=== PATIENT | female | born 1965 | race Caucasian/White ===

== ENCOUNTER → 2016-07-06 | Outpatient (CLI) | payer MEDICARE ==
[~2016-07-06] MED LIST: /DULO30CA OR; /ROPI5TA OR; AMIT25TA10 PO; AMITIZA PO; ESTR62CR PV; IBUP800T OR; LISI10TA4; LYRI75CA OR; MILKSUS PO; MIRALEX PO; NAPR500T; NICORETTE; PAXI30TA OR; SOMA350T; SOMA350T OR; TIZA2TAB3 PO; TRAM50TA2 OR; VENL75TA2; VICO5TAB PO; [UNRECOGNIZED DRUG - CODE] PO
--- NOTE | 2016-07-06 23:53 | ECWPNPC ---
PATIENT NAME: NICOLAS LLANES : 1965 GENDER: FEMALE VISIT DATE: 07/06/2016 DISCHARGE DATE: 07/06/16 1027 VISIT LOCKED DATE TIME: PHYSICIAN: CHING LONG RESOURCE: CHING LONG REASON FOR APPOINTMENT 1. FIBROMIALGIA HISTORY OF PRESENT ILLNESS HISTORY OF PRESENT ILLNESS: PAIN THE PATIENT DESCRIBES THE PAIN... FALL RISK SCREENING: SCREENING :NO FALLS IN THE PAST YEAR TODAY'S VISIT: NOTES: RATES PAIN LEVEL TODAY 6/10 . NOTES WORST AREA OF PAIN IS JOINTS AND AT THE BASE OF THE NECK AND ACROSS THE SHOULDERS. REPORTS TRAMADOL IS EXTREMELY EFFECTIVE AT KEEPING THE PAIN CONTROLED. NOTED SHE IS FEELING VERY STRESSED AND WHILE IS NOT SUICIDAL WISHES SHE COULD SLEEP FOREVER.. CURRENT MEDICATIONS TAKING CYMBALTA 60 MG CAPSULE DELAYED RELEASE PARTICLES 1 CAPSULE ORALLY ONCE A DAY TAKING TRAMADOL HCL 50 MG TABLET 1-2 TABS ORALLY EVERY 6 HRS PRN TAKING IBUPROFEN 1 TAB ORAL 400 MG Q 6HRS NEEDED NOT-TAKING ZANTAC 150 MAXIMUM STRENGTH 75 MG TABLET 1 TABLET ORALLY TWICE A DAY UNKNOWN CUSTOM DO NOT USE TRAMADOL 50 MG TABLET ONE TAB ORALLY EVERY 4-6 HOURS PRN PAIN UNKNOWN SOMA 350 MG TABLET 1 TABLET NEEDED ORALLY FOUR TIMES A DAY UNKNOWN PAXIL 20 MG TABLET 1 TABLET IN THE MORNING ORALLY ONCE A DAY MEDICATION LIST REVIEWED AND RECONCILED WITH THE PATIENT PAST MEDICAL HISTORY FIBROMYALGIA ARTHRITIS DEPRESSION ACID REFLUX ARNOLD MALFORMATION SHINGLES IN 2016 DIVERTICULOSIS ALLERGIES WELLBUTRIN: MOOD-ANGRY: SIDE EFFECTS CT DYE: SNEEZING-BREATHING: ALLERGY SURGICAL HISTORY APPENDECTOMY 1987 TUBAL LIGATION HYSTERECTOMY CHOLECYSTECTOMY SOCIAL HISTORY GENERAL: TOBACCO USE ARE YOU A:NONSMOKER LEARNING BARRIERS / SPECIAL NEEDS ORIENTED TO PLAN OF CARE: PATIENT, PAIN MANAGEMENT PATIENT, ORIENTED TO PLAN OF CARE: PATIENT, PAIN MANAGEMENT PATIENT. NEW PATIENT PAIN DIARY TODAY'S VISITNOTES FROM 0-10, WHAT LEVEL IS YOUR PAIN TODAY?0 PAIN CLINIC PFS, CLERGY, PUBLIC HEALTH REFERRALS PFS REFERRAL NEEDED?NO CLERGY REFERRAL NEEDED?NO PUBLIC HEALTH REFERRAL NEEDED?NO WAS THE PROVIDER NOTIFIED OF ANY PERTINENT INFO?NO PFS REFERRAL NEEDED?NO CLERGY REFERRAL NEEDED?NO PUBLIC HEALTH REFERRAL NEEDED?NO WAS THE PROVIDER NOTIFIED OF ANY PERTINENT INFO?NO HOSPITALIZATION/MAJOR DIAGNOSTIC PROCEDURE SURGICAL RELATED REVIEW OF SYSTEMS CONSTITUTIONAL: ANY CHANGE IN YOUR MEDICAL CONDITION? YES TREATED FOR DIVERTICULITIS 1 MONTH AGO WITH ANTIBIOTICS. . ANXIETY FAMILY ISSUES . CHILLS NO . FEVER NO . INFECTION: DO YOU HAVE NEW INFECTIONS? NO . DO YOU HAVE HISTORY OF MRSA? NO . MUSCULOSKELETAL: ANY NEW PATTERNS OF PAIN OR NUMBNESS? NO . GASTROENTEROLOGY: ANY NEW CHANGE IN BOWEL CONTROL? NO . ADDOMINAL PAIN NEW DIAGNOSIS OF DIVERTICULOSIS AND HAD EPISODE OF DIVERTICULITIS WHICH REQUIRED ANTIBIOTICS. . GENITOURINARY: ANY NEW CHANGE IN BLADDER CONTROL? NO . IS THERE A CHANCE YOU COULD BE ? NO . HEMATOLOGY/LYMPH: DO YOU TAKE ANY BLOOD THINNERS? (FOR EXAMPLE- COUMADIN, PLAVIX, AGGRENOX, PLATEL, PRADAXA, OR XARELTO) NO . WHEN WAS YOUR LAST DOSE? DATE: TIME: . NEUROLOGY: HAVE YOU FALLEN IN THE PAST 6 MONTHS? NO . ANY NEW EXTREMITY NUMBNESS OR WEAKNESS? NO . CARDIOLOGY: DO YOU HAVE A PACEMAKER OR DEFIBRILLATOR? NO . RESPIRATORY: HAVE YOU BEEN SICK IN THE PAST WEEK? NO . FEVER NO . FLU LIKE SYMPTOMS? NO . COUGH NO . INTEGUMENTARY: DO YOU HAVE ANY RASHES OR OPEN SORES? NO . ALLERGIC/IMMUNO: ARE YOU ALLERGIC TO SHELLFISH OR IV DYE? YES CT DYE . ANY NEW ALLERGIES? NO . PSYCHIATRIC: DO YOU HAVE THOUGHTS OF HURTING YOURSELF OR SOMEONE ELSE? NO . ARE YOU ABUSED, NEGLECTED, OR IN AN UNSAFE ENVIRONMENT? NO . ENDOCRINOLOGY: ARE YOU DIABETIC? NO . OTHER: DO YOU NEED ANY PRESCRIPTIONS? YES CYMBALTA/TRAMADOL . IF YES, PLEASE LIST: ____ . ANY NEW PROBLEMS WITH YOUR MEDICATIONS? NO . WHEN DID YOU LAST EAT? ____ . WHEN DID YOU LAST DRINK? ____ . WHAT DID YOU LAST DRINK? ____ . NAME OF PERSON DRIVING YOU HOME? ____ . DO YOU HAVE ANY OTHER QUESTIONS OR CONCERNS NO . PSYCHOLOGY: ANXIETY WORSENING . DEPRESSION NO SUICIDAL IDEATION, BUT JUST DOESN NOT CARE AND EXPRESSED THAT SHE NEEDS HELP WITH THE CAUSES. . REVIEWED BY: PROVIDER: CHING WALLER . VITAL SIGNS WT 191 LBS, HT 64.5", BMI 32.28 INDEX, BP 178/96 MM HG, REPEAT BP 161/100 MM HG, HR 101 /MIN, RR 18 /MIN, TEMP 97.7 F, OXYGEN SAT % 98, NA INITIALS MP, REVIEWED BY: MLFNURSE NOTIFIED OF HIGH B/P. EXAMINATION GENERAL EXAMINATION: PSYCHAFFECT FLAT, APPREAS SAD, CRIES FREQUENTLY, ALERT , ORIENTED X 3 . LUNGS:CLEAR TO AUSCULTATION BILATERALLY. HEART:HEART RATE REGULAR, RAPID. MUSCULOSKELETAL:TRIGGER POINTS:, ELICITED WITH PALPATION OVER CERVICAL SPINOUS PROCESSES AND ACROSS THE TRAPEZIUS MUSCLES BILATERALLY. RESTRICTION OF ROM IS NOTED. , MUSCLE STRENGTH TESTING 5/5 BILATERAL UPPER AND LOWER EXTREMITIES. 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 SUPPORT OFFRED. WILL FOLLOW UP WITH PCP REGARDING BLOOD PRESSURE. [facility] REASON:INCREASED DEPRESSION/ANXIETY, FAMILY ISSUES PROCEDURE CODES FA211 ESTABILISHED PATIENT [facility] FACILITY CHARGE N9254 PAIN ASSESS POS TOOL F/U PLAN DOC 3016F PT SCRND UNHLTHY [place] USE 1124F ACP DISCUSS-NO DSCNMKR DOCD 1036F TOBACCO NON-USER G8427 DOC MEDS VERIFIED W/PT OR RE G8420 BMI<30 AND >=22 CALC & DOCU 3288F FALL RISK ASSESSMENT DOCD G8950 PREHTN/HTN BP DOC INDCD F/U DOC FOLLOW UP 3 MONTHS ELECTRONICALLY SIGNED BY ADRIAN WAGGONER ON 07/06/2016 AT 01:48 PM EST DISCLAIMER : THIS IS A VISIT SUMMARY EXTRACTED FROM THE [employer] CHART. IT IS NOT A COPY OF THE [employer] PROGRESS NOTE. JEMD
== END ==
LOC: M PAIN 09:20
PROVIDERS: ATTEND Nurse Practitioner Family
DX: Q07.00 Arnold-Chiari syndrome without spina bifida or hydrocephalus (principal); M54.2 Cervicalgia; M79.7 Fibromyalgia; M19.90 Unspecified osteoarthritis, unspecified site; F32.9 Major depressive disorder, single episode, unspecified; K21.9 Gastro-esophageal reflux disease without esophagitis; Z79.891 Long term (current) use of opiate analgesic; Z79.899 Other long term (current) drug therapy; Z88.8 Allergy status to other drugs, medicaments and biological substances; Z91.041 Radiographic dye allergy status

== ENCOUNTER → 2016-11-01 | Outpatient (REF) | payer MEDICARE | LOC: M LAB REF 16:24 | PROVIDERS: ATTEND Physician Assistant | DX: R30.0 Dysuria (principal) ==

== ENCOUNTER → 2016-12-01 | Outpatient (CLI) | payer MEDICARE ==
--- NOTE | 2016-12-01 23:23 | ECWPNPC ---
PATIENT NAME: NICOLAS LLANES : 1965 GENDER: FEMALE VISIT DATE: 12/01/2016 DISCHARGE DATE: 12/01/16 1553 VISIT LOCKED DATE TIME: PHYSICIAN: CHING LONG RESOURCE: CHING LONG HISTORY OF PRESENT ILLNESS HISTORY OF PRESENT ILLNESS: PAIN THE PATIENT DESCRIBES THE PAIN... THE PATIENT DESCRIBES THE PAIN... PAIN THE PATIENT DESCRIBES THE PAIN... THE PATIENT DESCRIBES THE PAIN... FALL RISK SCREENING: SCREENING :NO FALLS IN THE PAST YEAR :NO FALLS IN THE PAST YEAR SCREENING :NO FALLS IN THE PAST YEAR :NO FALLS IN THE PAST YEAR TODAY'S VISIT: NOTES: HAS BEEN HAVING SIGNIFICANT FAMILY STRESS - THIS INCREASES GI DISTRESS AND PAIN. IS ASKING TODAY ABOUT MEDICAL MARIJUANA PROGRAM. REPORTS SHE HASN'T HAD A HEADACHE AND HAS TAKEN NO IBUPROFEN IN OVER A MONTH. RATESPAIN TODAY 10/12. NOTES THAT TRAMADOL IS VERY EFFECTIVE IN MANAGING HER PAIN. . CURRENT MEDICATIONS TAKING IBUPROFEN 1 TAB ORAL 400 MG Q 6HRS NEEDED TAKING TRAMADOL HCL 50 MG TABLET 1-2 TABS ORALLY EVERY 6 HRS PRN TAKING CYMBALTA 60 MG CAPSULE DELAYED RELEASE PARTICLES 1 CAPSULE ORALLY TWICE A DAY NOT-TAKING ZANTAC 150 MAXIMUM STRENGTH 75 MG TABLET 1 TABLET ORALLY TWICE A DAY UNKNOWN CUSTOM DO NOT USE TRAMADOL 50 MG TABLET ONE TAB ORALLY EVERY 4-6 HOURS PRN PAIN UNKNOWN SOMA 350 MG TABLET 1 TABLET NEEDED ORALLY FOUR TIMES A DAY UNKNOWN PAXIL 20 MG TABLET 1 TABLET IN THE MORNING ORALLY ONCE A DAY MEDICATION LIST REVIEWED AND RECONCILED WITH THE PATIENT PAST MEDICAL HISTORY FIBROMYALGIA ARTHRITIS DEPRESSION ACID REFLUX ARNOLD MALFORMATION SHINGLES IN 2016 DIVERTICULOSIS ALLERGIES WELLBUTRIN: MOOD-ANGRY: SIDE EFFECTS CT DYE: SNEEZING-BREATHING: ALLERGY SOCIAL HISTORY GENERAL: TOBACCO USE SMOKING CESSATION INFORMATION GIVEN10/27/2015 EXPRESSES INTEREST IN THE PATCH TO QUIT SMOKING/ 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 RECREATIONAL DRUG USE DENIES. SEXUAL HX HAD SEX IN THE LAST 12 MONTHS (VAGINAL, ORAL, OR ANAL)?: YES, WITH: MEN ONLY, USE PROTECTION?: NO, HAVE YOU EVER HAD AN STD?: NO. OCCUPATION: UNEMPLOYED. MARITAL STATUS: . LEARNING BARRIERS / SPECIAL NEEDS ABILITY TO UNDERSTAND VERBAL INSTRUCTIONS GOOD, ABILITY TO UNDERSTAND WRITTEN INSTRUCTIONS GOOD, KNOWLEDGE OF EDUCATIONAL NEEDS/TREATMENT PLAN GOOD, LEARNING PREFERENCE NO PREFERENCE, ORIENTED TO PLAN OF CARE: PATIENT, TEACHING MATERIALS DEMONSTRATION/VERBAL INSTRUCTION, RESPONSE TO EDUCATION EXPLAINES ACCURATELY/VERBALIZES UNDERSTANDING. REVIEW OF SYSTEMS FOLLOW-UP ROS: PSYCHOLOGY: POSITIVE FOR SIGNIFICANT STRESS - IS SEPERATED FROM . . REVIEWED BY: PROVIDER: CHING WALLER . CONSTITUTIONAL: ANY CHANGE IN YOUR MEDICAL CONDITION? NO, NO . CHILLS NO, NO . FEVER NO, NO . INFECTION: DO YOU HAVE NEW INFECTIONS? NO, NO . DO YOU HAVE HISTORY OF MRSA? NO, NO . MUSCULOSKELETAL: ANY NEW PATTERNS OF PAIN OR NUMBNESS? NO, NO . GASTROENTEROLOGY: GENERAL INTERMITTANT BUT PERSISTANT BOWEL PAIN AND DIARRHEA. INTERMITTANT SHARP RECTAL PAIN . ANY NEW CHANGE IN BOWEL CONTROL? NO, . GENITOURINARY: ANY NEW CHANGE IN BLADDER CONTROL? NO, NO . IS THERE A CHANCE YOU COULD BE ? NO, NO . HEMATOLOGY/LYMPH: DO YOU TAKE ANY BLOOD THINNERS? (FOR EXAMPLE- COUMADIN, PLAVIX, AGGRENOX, PLATEL, PRADAXA, OR XARELTO) NO, NO . WHEN WAS YOUR LAST DOSE? DATE: TIME: , DATE: TIME: . NEUROLOGY: HAVE YOU FALLEN IN THE PAST 6 MONTHS? NO, NO . ANY NEW EXTREMITY NUMBNESS OR WEAKNESS? NO, NO . CARDIOLOGY: DO YOU HAVE A PACEMAKER OR DEFIBRILLATOR? NO, NO . CHEST PAIN PATIENT DENIES . RESPIRATORY: HAVE YOU BEEN SICK IN THE PAST WEEK? NO, NO . FEVER NO, NO . FLU LIKE SYMPTOMS? NO, NO . COUGH NO, NO . INTEGUMENTARY: DO YOU HAVE ANY RASHES OR OPEN SORES? NO, NO . ALLERGIC/IMMUNO: ARE YOU ALLERGIC TO SHELLFISH OR IV DYE? NO, NO . ANY NEW ALLERGIES? NO, NO . PSYCHIATRIC: DO YOU HAVE THOUGHTS OF HURTING YOURSELF OR SOMEONE ELSE? NO, NO . ARE YOU ABUSED, NEGLECTED, OR IN AN UNSAFE ENVIRONMENT? NO, NO . ENDOCRINOLOGY: ARE YOU DIABETIC? NO, NO . OTHER: DO YOU NEED ANY PRESCRIPTIONS? NO, NO . IF YES, PLEASE LIST: ____, ____ . ANY NEW PROBLEMS WITH YOUR MEDICATIONS? NO, NO . WHEN DID YOU LAST EAT? ____, ____ . WHEN DID YOU LAST DRINK? ____, ____ . WHAT DID YOU LAST DRINK? ____, ____ . NAME OF PERSON DRIVING YOU HOME? ____, ____ . DO YOU HAVE ANY OTHER QUESTIONS OR CONCERNS NO, NO . VITAL SIGNS WT 423.28 LBS, HT 64.5", BMI 71.53 INDEX, BP 92:148, 148/92 MM HG, HR 88 /MIN, RR 16 /MIN, TEMP 98.6 F, OXYGEN SAT % 95, REVIEWED BY: KG. EXAMINATION GENERAL EXAMINATION: PSYCHALERT , ORIENTED X 3 , APPROPRIATE MOOD AND AFFECT , SMILING AND TALKATIVE. LUNGS:CLEAR TO AUSCULTATION BILATERALLY. HEART:HEART RATE REGULAR, NORMAL S1S2, NO MURMURS, CLICK OR RUBS. ABDOMEN:SOFT, NON-TENDER/NON-DISTENDED, BOWEL SOUNDS PRESENT. MUSCULOSKELETAL:TRIGGER POINTS:, ELICITED WITH PALPATION OVER CERVICAL SPINOUS PROCESSES AND ACROSS THE TRAPEZIUS MUSCLES BILATERALLY. MUSCLE STRENGTH TESTING 5/5 BILATERAL UPPER AND LOWER EXTREMITIES. EXTREMITIES:NO EDEMA. 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 CONTINUE TRAMADOLCONTINUE WITH SLOW WEIGHT LOSS. CONTINUE HEALTHY DIETCOUNSELING NEEDED. PROCEDURE CODES FA211 ESTABILISHED PATIENT [facility] FACILITY CHARGE G8730 PAIN ASSESS POS TOOL F/U PLAN DOC G8427 DOC MEDS VERIFIED W/PT OR RE DISPOSITION & COMMUNICATION FOLLOW UP 2-3 MONTHS (REASON: NECK PAIN/HEADACHE) ELECTRONICALLY SIGNED BY ADRIAN WAGGONER ON 12/01/2016 AT 05:26 PM EDT DISCLAIMER : THIS IS A VISIT SUMMARY EXTRACTED FROM THE [employer] CHART. IT IS NOT A COPY OF THE [employer] PROGRESS NOTE. ELLE
== END ==
LOC: M PAIN 14:40
PROVIDERS: ATTEND Nurse Practitioner Family
DX: Q07.00 Arnold-Chiari syndrome without spina bifida or hydrocephalus (principal); M50.20 Other cervical disc displacement, unspecified cervical region; Z79.891 Long term (current) use of opiate analgesic; Z79.899 Other long term (current) drug therapy; Z88.8 Allergy status to other drugs, medicaments and biological substances; Z91.041 Radiographic dye allergy status

== ENCOUNTER → 2017-02-27 | Outpatient (CLI) | payer MEDICARE ==
--- NOTE | 2017-03-01 00:10 | ECWPNPC ---
PATIENT NAME: NICOLAS LLANES : 1965 GENDER: FEMALE VISIT DATE: 02/27/2017 DISCHARGE DATE: 02/27/17 1127 VISIT LOCKED DATE TIME: PHYSICIAN: CHING LONG RESOURCE: CHING LONG REASON FOR APPOINTMENT 1. BACK HISTORY OF PRESENT ILLNESS HISTORY OF PRESENT ILLNESS: PAIN THE PATIENT DESCRIBES THE PAIN... FALL RISK SCREENING: SCREENING :NO FALLS IN THE PAST YEAR TODAY'S VISIT: NOTES: RATES PAIN TODAY 7-8/10. NOTES PAIN AND SWELLING OVER CENTER ABDOMEN AND LOWER GI TRACT AND IS HAVING A CHECK OF THIS AT [place] SURGEON. NOTES SWELLING IN FEET AND RECTUM. IS NOTING RED BLOTCHES ON THE SKIN. NOTES MUSCLE TIGHTNESS AND STIFFNESS BUT REPORTS OCCIPITAL HAVE NOT BEEN "TOO BAD". HAS BEEN DEALING WITH SIG FAMILY STRESS. CURRENT MEDICATIONS TAKING IBUPROFEN 1 TAB ORAL 400 MG Q 6HRS NEEDED TAKING TRAMADOL HCL 50 MG TABLET 1-2 TABS ORALLY EVERY 6 HRS PRN TAKING CYMBALTA 60 MG CAPSULE DELAYED RELEASE PARTICLES 1 CAPSULE ORALLY TWICE A DAY NOT-TAKING ZANTAC 150 MAXIMUM STRENGTH 75 MG TABLET 1 TABLET ORALLY TWICE A DAY UNKNOWN CUSTOM DO NOT USE TRAMADOL 50 MG TABLET ONE TAB ORALLY EVERY 4-6 HOURS PRN PAIN UNKNOWN SOMA 350 MG TABLET 1 TABLET NEEDED ORALLY FOUR TIMES A DAY UNKNOWN PAXIL 20 MG TABLET 1 TABLET IN THE MORNING ORALLY ONCE A DAY MEDICATION LIST REVIEWED AND RECONCILED WITH THE PATIENT PAST MEDICAL HISTORY FIBROMYALGIA ARTHRITIS DEPRESSION ACID REFLUX ARNOLD MALFORMATION SHINGLES IN 2016 DIVERTICULOSIS ALLERGIES WELLBUTRIN: MOOD-ANGRY: SIDE EFFECTS CT DYE: SNEEZING-BREATHING: ALLERGY REVIEW OF SYSTEMS REVIEWED BY: PROVIDER: CHING LONG SPECIAL NEEDS BABYSITTER . CONSTITUTIONAL: ANY CHANGE IN YOUR MEDICAL CONDITION? YES PT REPORTS SHE HAS A LARGE HERNIA IN ABDOMEN, TO SEE A SURGEON TOMORROW IN [place]. PT ALSO REPORTS INCREASED SWELLING IN FEET AND ANKLES. . CHILLS NO . FEVER NO . INFECTION: DO YOU HAVE NEW INFECTIONS? NO . DO YOU HAVE HISTORY OF MRSA? NO . MUSCULOSKELETAL: ANY NEW PATTERNS OF PAIN OR NUMBNESS? YES PT REPORTS INCREASED PAIN, GOING ON FOR TWO WEEKS. . GASTROENTEROLOGY: ANY NEW CHANGE IN BOWEL CONTROL? PT FEELS SHE IS "SWOLLEN" IN HER ABDOMEN, FEELS THIS IS DUE TO HER HERNIA. NO REPORTED DIARRHER OR CONSTIPATION, MOVES BOWELS DAILY. . GENITOURINARY: ANY NEW CHANGE IN BLADDER CONTROL? NO . IS THERE A CHANCE YOU COULD BE ? NO . HEMATOLOGY/LYMPH: DO YOU TAKE ANY BLOOD THINNERS? (FOR EXAMPLE- COUMADIN, PLAVIX, AGGRENOX, PLATEL, PRADAXA, OR XARELTO) NO . WHEN WAS YOUR LAST DOSE? DATE: TIME: . NEUROLOGY: HAVE YOU FALLEN IN THE PAST 6 MONTHS? YES PT REPORTS HER BALANCE IS OFF, AND SHE STUMBLES. NO ED OR MD VISITS, NO XRAYS. . ANY NEW EXTREMITY NUMBNESS OR WEAKNESS? NO . CARDIOLOGY: DO YOU HAVE A PACEMAKER OR DEFIBRILLATOR? NO . RESPIRATORY: HAVE YOU BEEN SICK IN THE PAST WEEK? NO . FEVER NO . FLU LIKE SYMPTOMS? NO . COUGH NO . INTEGUMENTARY: DO YOU HAVE ANY RASHES OR OPEN SORES? NO . ALLERGIC/IMMUNO: ARE YOU ALLERGIC TO SHELLFISH OR IV DYE? YES . ANY NEW ALLERGIES? NO . PSYCHIATRIC: DO YOU HAVE THOUGHTS OF HURTING YOURSELF OR SOMEONE ELSE? NO . ARE YOU ABUSED, NEGLECTED, OR IN AN UNSAFE ENVIRONMENT? NO . ENDOCRINOLOGY: ARE YOU DIABETIC? NO . OTHER: DO YOU NEED ANY PRESCRIPTIONS? YES, BUT UNSURE WHICH . IF YES, PLEASE LIST: ____ . ANY NEW PROBLEMS WITH YOUR MEDICATIONS? NO . WHEN DID YOU LAST EAT? ____ . WHEN DID YOU LAST DRINK? ____ . WHAT DID YOU LAST DRINK? ____ . NAME OF PERSON DRIVING YOU HOME? ____ . DO YOU HAVE ANY OTHER QUESTIONS OR CONCERNS NO . PSYCHOLOGY: HIGH STRESS LEVEL ASSOCIATED WITH:, IN THE FAMILY . DOES USE "WILD " MARIJUANA AND WISHES TO MAKE CHANGE TO MEDICALLY CONTROLLED MARIJUANA. . VITAL SIGNS WT 186 LBS, HT 64.5", BMI 31.43 INDEX, BP 143/72 MM HG, HR 84 /MIN, RR 18 /MIN, TEMP 97.5 F, OXYGEN SAT % 96%, SAFE IN ENV? (Y/N) YES, NA INITIALS SC 10:38, REVIEWED BY: YENY. EXAMINATION GENERAL EXAMINATION: PSYCHALERT , ORIENTED X 3 , QUIET TODAY, GOOD EYE CONTACT. LUNGS:CLEAR TO AUSCULTATION BILATERALLY. HEART:HEART RATE REGULAR, NORMAL S1S2, NO MURMURS, CLICK OR RUBS. ABDOMEN:SOFT, -TENDER AND FIRM CIRCUMFERENTIALLY AROUND THE UMBILICUS /NON-DISTENDED, BOWEL SOUNDS PRESENT. MUSCULOSKELETAL:TRIGGER POINTS:, ELICITED WITH PALPATION OVER CERVICAL SPINOUS PROCESSES AND ACROSS THE TRAPEZIUS MUSCLES BILATERALLY. MUSCLE STRENGTH TESTING 5/5 BILATERAL UPPER AND LOWER EXTREMITIES. EXTREMITIES:TRACE EDEMA BILATERAL LOWER EXTREMITIES. 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 CLINICAL NOTES: [employer] REGISTRY REVIEWED AND DEMNOSTRATES COMPLLIANCE. REF # [id number]. PROCEDURE CODES FA211 ESTABILISHED PATIENT [facility] FACILITY CHARGE G8730 PAIN ASSESS POS TOOL F/U PLAN DOC G8427 DOC MEDS VERIFIED W/PT OR RE DISPOSITION & COMMUNICATION FOLLOW UP 2 MONTHS (REASON: GENERALIZED PAIN) ELECTRONICALLY SIGNED BY ADRIAN WAGGONER ON 02/28/2017 AT 08:22 AM EDT DISCLAIMER : THIS IS A VISIT SUMMARY EXTRACTED FROM THE [employer] CHART. IT IS NOT A COPY OF THE [employer] PROGRESS NOTE. ELLE
== END ==
LOC: M PAIN 10:30
PROVIDERS: ATTEND Nurse Practitioner Family
DX: Q07.00 Arnold-Chiari syndrome without spina bifida or hydrocephalus (principal); M50.20 Other cervical disc displacement, unspecified cervical region; Z79.891 Long term (current) use of opiate analgesic; Z79.899 Other long term (current) drug therapy; Z88.8 Allergy status to other drugs, medicaments and biological substances; Z91.041 Radiographic dye allergy status

== ENCOUNTER → 2017-05-02 | Outpatient (CLI) | payer MEDICARE ==
--- NOTE | 2017-05-22 00:08 | ECWPNPC ---
PATIENT NAME: NICOLAS LLANES : 1965 GENDER: FEMALE VISIT DATE: 05/02/2017 DISCHARGE DATE: 05/02/17 1537 VISIT LOCKED DATE TIME: PHYSICIAN: CHING LONG RESOURCE: CHING LONG REASON FOR APPOINTMENT 1. GENERALIZED PAIN HISTORY OF PRESENT ILLNESS HISTORY OF PRESENT ILLNESS: PAIN THE PATIENT DESCRIBES THE PAIN... FALL RISK SCREENING: SCREENING :NO FALLS IN THE PAST YEAR TODAY'S VISIT: NOTES: RATES PAIN TODAY 6/10.HAS STARTED MEDICAL MARIJUANA AND NOTES THIS IS HELPFUL WITH SLEEP AND ANXIETY. IS ALSO HELPING THE OVERALL PAIN AND RACING THOUGHTS.. CURRENT MEDICATIONS TAKING IBUPROFEN 1 TAB ORAL 400 MG Q 6HRS NEEDED TAKING TRAMADOL HCL 50 MG TABLET 1-2 TABS ORALLY EVERY 6 HRS PRN TAKING CYMBALTA 60 MG CAPSULE DELAYED RELEASE PARTICLES 1 CAPSULE ORALLY TWICE A DAY UNKNOWN ZANTAC 150 MAXIMUM STRENGTH 75 MG TABLET 1 TABLET ORALLY TWICE A DAY UNKNOWN CUSTOM DO NOT USE TRAMADOL 50 MG TABLET ONE TAB ORALLY EVERY 4-6 HOURS PRN PAIN UNKNOWN SOMA 350 MG TABLET 1 TABLET NEEDED ORALLY FOUR TIMES A DAY UNKNOWN PAXIL 20 MG TABLET 1 TABLET IN THE MORNING ORALLY ONCE A DAY MEDICATION LIST REVIEWED AND RECONCILED WITH THE PATIENT PAST MEDICAL HISTORY FIBROMYALGIA ARTHRITIS DEPRESSION ACID REFLUX ARNOLD MALFORMATION SHINGLES IN 2016 DIVERTICULOSIS ALLERGIES WELLBUTRIN: MOOD-ANGRY: SIDE EFFECTS CT DYE: SNEEZING-BREATHING: ALLERGY SOCIAL HISTORY GENERAL: TOBACCO USE SMOKING CESSATION INFORMATION GIVEN05/02/2017 EXPRESSES INTEREST IN THE PATCH TO QUIT SMOKING/ 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 RECREATIONAL DRUG USE DENIES. SEXUAL HX HAD SEX IN THE LAST 12 MONTHS (VAGINAL, ORAL, OR ANAL)?: YES, WITH: MEN ONLY, USE PROTECTION?: NO, HAVE YOU EVER HAD AN STD?: NO. OCCUPATION: UNEMPLOYED. MARITAL STATUS: . LEARNING BARRIERS / SPECIAL NEEDS ABILITY TO UNDERSTAND VERBAL INSTRUCTIONS GOOD, ABILITY TO UNDERSTAND WRITTEN INSTRUCTIONS GOOD, KNOWLEDGE OF EDUCATIONAL NEEDS/TREATMENT PLAN GOOD, LEARNING PREFERENCE NO PREFERENCE, ORIENTED TO PLAN OF CARE: PATIENT, TEACHING MATERIALS DEMONSTRATION/VERBAL INSTRUCTION, RESPONSE TO EDUCATION EXPLAINES ACCURATELY/VERBALIZES UNDERSTANDING. REVIEW OF SYSTEMS FOLLOW-UP ROS: PSYCHOLOGY: HAS JUST STARTED COUNSELING . REVIEWED BY: PROVIDER: . CONSTITUTIONAL: ANY CHANGE IN YOUR MEDICAL CONDITION? NO . CHILLS NO . FEVER NO . INFECTION: DO YOU HAVE NEW INFECTIONS? NO . DO YOU HAVE HISTORY OF MRSA? NO . MUSCULOSKELETAL: ANY NEW PATTERNS OF PAIN OR NUMBNESS? NO . GASTROENTEROLOGY: GENERAL IS HAVING VENTRAL HERNIA REPAIR TOMORROW . ANY NEW CHANGE IN BOWEL CONTROL? NO . GENITOURINARY: ANY NEW CHANGE IN BLADDER CONTROL? NO . IS THERE A CHANCE YOU COULD BE ? NO . HEMATOLOGY/LYMPH: DO YOU TAKE ANY BLOOD THINNERS? (FOR EXAMPLE- COUMADIN, PLAVIX, AGGRENOX, PLATEL, PRADAXA, OR XARELTO) NO . WHEN WAS YOUR LAST DOSE? DATE: TIME: . NEUROLOGY: HAVE YOU FALLEN IN THE PAST 6 MONTHS? YES 2 WEEKS AGO HAD A FALL LEGS WEAK, USUALLY THE LEFT ONE . ANY NEW EXTREMITY NUMBNESS OR WEAKNESS? NO . CARDIOLOGY: DO YOU HAVE A PACEMAKER OR DEFIBRILLATOR? NO . RESPIRATORY: HAVE YOU BEEN SICK IN THE PAST WEEK? NO . FEVER NO . FLU LIKE SYMPTOMS? NO . COUGH NO . INTEGUMENTARY: DO YOU HAVE ANY RASHES OR OPEN SORES? NO . ALLERGIC/IMMUNO: ARE YOU ALLERGIC TO SHELLFISH OR IV DYE? NO . ANY NEW ALLERGIES? NO . PSYCHIATRIC: DO YOU HAVE THOUGHTS OF HURTING YOURSELF OR SOMEONE ELSE? NO . ARE YOU ABUSED, NEGLECTED, OR IN AN UNSAFE ENVIRONMENT? NO . ENDOCRINOLOGY: ARE YOU DIABETIC? NO . OTHER: DO YOU NEED ANY PRESCRIPTIONS? YES TRAMADOL, CYMBALTA, ZANTAC . IF YES, PLEASE LIST: ____ . ANY NEW PROBLEMS WITH YOUR MEDICATIONS? NO . WHEN DID YOU LAST EAT? ____ . WHEN DID YOU LAST DRINK? ____ . WHAT DID YOU LAST DRINK? ____ . NAME OF PERSON DRIVING YOU HOME? ____ . DO YOU HAVE ANY OTHER QUESTIONS OR CONCERNS NO . VITAL SIGNS WT 190 LBS, HT 64.5", BMI 32.11 INDEX, BP 170/95 MM HG, HR 89 /MIN, RR 18 /MIN, TEMP 98.1 F, OXYGEN SAT % 96%, SAFE IN ENV? (Y/N) YES, NA INITIALS SC 14:29, REVIEWED BY: KG. EXAMINATION GENERAL EXAMINATION: PSYCHALERT , ORIENTED X 3 , QUIET TODAY, GOOD EYE CONTACT. LUNGS:CLEAR TO AUSCULTATION BILATERALLY. HEART:HEART RATE REGULAR, NORMAL S1S2, NO MURMURS, CLICK OR RUBS. ABDOMEN:SOFT, -TENDER AND FIRM CIRCUMFERENTIALLY AROUND THE UMBILICUS /NON-DISTENDED, BOWEL SOUNDS PRESENT. MUSCULOSKELETAL:TRIGGER POINTS:, ELICITED WITH PALPATION OVER CERVICAL SPINOUS PROCESSES AND ACROSS THE TRAPEZIUS MUSCLES BILATERALLY. MUSCLE STRENGTH TESTING 5/5 BILATERAL UPPER AND LOWER EXTREMITIES. EXTREMITIES:TRACE EDEMA BILATERAL LOWER EXTREMITIES. 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 REFILL TRAMADOL HCL TABLET, 50 MG, 1-2 TABS, ORALLY, EVERY 6 HRS PRN, 30 DAY(S), 180, REFILLS 5 REFILL CYMBALTA CAPSULE DELAYED RELEASE PARTICLES, 60 MG, 1 CAPSULE, ORALLY, TWICE A DAY, 30 DAY(S), 60, REFILLS 5 START RANITIDINE HCL CAPSULE, 150 MG, 1 CAPSULE AT BEDTIME, ORALLY, BID, 30 DAY(S), 60 CAPSULE, REFILLS 5 PROCEDURE CODES FA211 ESTABILISHED PATIENT [facility] FACILITY CHARGE [id number] PAIN ASSESS POS TOOL F/U PLAN DOC G8427 DOC MEDS VERIFIED W/PT OR RE DISPOSITION & COMMUNICATION FOLLOW UP 3 MONTHS (REASON: NECK PAIN) ELECTRONICALLY SIGNED BY ADRIAN WAGGONER ON 05/21/2017 AT 03:14 PM EST DISCLAIMER : THIS IS A VISIT SUMMARY EXTRACTED FROM THE [employer] CHART. IT IS NOT A COPY OF THE [employer] PROGRESS NOTE. [place]
== END ==
LOC: M PAIN 14:30
PROVIDERS: ATTEND Nurse Practitioner Family
DX: Q07.00 Arnold-Chiari syndrome without spina bifida or hydrocephalus (principal); M50.20 Other cervical disc displacement, unspecified cervical region; F32.9 Major depressive disorder, single episode, unspecified; Z88.8 Allergy status to other drugs, medicaments and biological substances; Z91.041 Radiographic dye allergy status; Z79.891 Long term (current) use of opiate analgesic; Z79.899 Other long term (current) drug therapy

== ENCOUNTER 2017-07-03 23:45 | Inpatient (IN) | payer MEDICARE ==
[2017-07-04 01:34] LABS: HEMATOCRIT 43.9 % (36.0-47.0); HEMOGLOBIN 15.1 g/dl (12.0-16.0); MEAN CORPUSCULAR HEMOGLOBIN 32.4 pg (27.0-33.0); MEAN CORPUSCULAR HGB CONC 34.4 g/dl (32.0-36.5); MEAN CORPUSCULAR VOLUME 94.2 fl (80.0-96.0); PLATELET COUNT, AUTOMATED 224 10^3/uL (150-450); RED BLOOD COUNT 4.66 10^6/uL (4.00-5.40); RED CELL DISTRIBUTION WIDTH 13.2 % (11.5-14.5); WHITE BLOOD COUNT 12.1 10^3/uL (4.0-10.0)
[2017-07-04 01:46] LABS: AMPHETAMINES LEVEL URINE NEGATIVE (NEGATIVE); BARBITURATES URINE NEGATIVE (NEGATIVE); BENZODIAZEPINES URINE NEGATIVE (NEGATIVE); CANNABINOIDS URINE POSITIVE (NEGATIVE); COCAINE METABOLITE URINE NEGATIVE (NEGATIVE); METHADONE URINE NEGATIVE (NEGATIVE); OPIATES URINE NEGATIVE (NEGATIVE); PHENCYCLIDINE URINE NEGATIVE (NEGATIVE)
[2017-07-04 02:03] LABS: ALBUMIN 4.2 GM/DL (3.2-5.2); ALBUMIN/GLOBULIN RATIO 1.24 (1.00-1.93); ALKALINE PHOSPHATASE 76 U/L (45-117); ALT/SGPT 28 U/L (12-78); ANION GAP 9 MEQ/L (8-16); AST/SGOT 19 U/L (7-37); BILIRUBIN,DIRECT < 0.1 MG/DL (0.0-0.2); BILIRUBIN,TOTAL 0.2 MG/DL (0.2-1.0); BLOOD UREA NITROGEN 8 MG/DL (7-18); CALCIUM LEVEL 9.1 MG/DL (8.5-10.1); CARBON DIOXIDE LEVEL 29 MEQ/L (21-32); CHLORIDE LEVEL 106 MEQ/L (98-107); CREATININE FOR GFR 0.88 MG/DL (0.55-1.30); GLOMERULAR FILTRATION RATE > 60.0 (>58); GLUCOSE, FASTING 107 MG/DL (70-100); POTASSIUM SERUM 4.2 MEQ/L (3.5-5.1); SALICYLATE LEVEL 6.9 MG/DL (5.0-30.0); SODIUM LEVEL 144 MEQ/L (136-145); TOTAL PROTEIN 7.6 GM/DL (6.4-8.2)
[2017-07-04 02:12] LABS: ETHYL ALCOHOL (ETHANOL) < 0.003 % (0.000-0.010)
[2017-07-04 02:13] LABS: ACETAMINOPHEN LEVEL < 2.0 UG/ML (10.0-30.0)
[2017-07-04] MEDS: LORazepam 1 MG TAB PO (02:25)
[2017-07-04 02:28] LABS: FREE THYROXINE INDEX 3.3 % (1.3-4.8); T UPTAKE 31 % (30-39); THYROXINE (T4) 10.6 UG/DL (4.5-12.0)
[2017-07-04] MEDS ORDERED: MOM 30ML SUSPENSION UDC PO (02:45)
[2017-07-04] MEDS ORDERED: traZODone 50 MG TAB PO (02:45)
[2017-07-04] MEDS ORDERED: MAALOX 30 ML SUSP *UDC PO (02:45)
[2017-07-04] MEDS: NICOTINE 21MG/24HR 1 EA TRANSDERMAL TD (10:22)
[2017-07-04] MEDS: traMADol 50 MG TAB PO (13:36)
[2017-07-04] MEDS: DULoxetine 30 MG CAP (CYMBALTA) PO ×2 (13:37→20:33)
[2017-07-04] MEDS: ACETAMINOPHEN TAB 650MG DOSE (2X325MG) PO (19:49)
[2017-07-04] MEDS: traZODone 50 MG TAB PO (21:00)
[2017-07-05] MEDS: ACETAMINOPHEN TAB 650MG DOSE (2X325MG) PO (03:57)
[2017-07-05] MEDS: traMADol 50 MG TAB PO ×4 (03:58→21:08)
[2017-07-05] MEDS: DULoxetine 30 MG CAP (CYMBALTA) PO ×2 (08:03→20:09)
[2017-07-05] MEDS: NICOTINE 21MG/24HR 1 EA TRANSDERMAL TD (08:04)
[2017-07-05 10:20] LABS: CONTROL LINE HCG INT CTR LINE PRESENT; HCG, SERUM QUALITATIVE NEGATIVE (NEGATIVE)
[2017-07-05] MEDS: FAMOTIDINE 20 MG TAB PO ×2 (10:57→20:09)
[2017-07-05] MEDS: PROPRANOLOL 10 MG TAB PO (12:40)
[2017-07-05] MEDS: traZODone 50 MG TAB PO (21:08)
[2017-07-06] MEDS ORDERED: PROPRANOLOL 10 MG TAB PO
[2017-07-06] MEDS: ACETAMINOPHEN TAB 650MG DOSE (2X325MG) PO (04:48)
[2017-07-06 07:41] LABS: HEMATOCRIT 44.3 % (36.0-47.0); HEMOGLOBIN 15.5 g/dl (12.0-16.0); MEAN CORPUSCULAR HEMOGLOBIN 32.5 pg (27.0-33.0); MEAN CORPUSCULAR VOLUME 92.9 fl (80.0-96.0); PLATELET COUNT, AUTOMATED 236 10^3/uL (150-450); RED BLOOD COUNT 4.77 10^6/uL (4.00-5.40); RED CELL DISTRIBUTION WIDTH 12.7 % (11.5-14.5); WHITE BLOOD COUNT 10.7 10^3/uL (4.0-10.0)
[2017-07-06 08:22] LABS: T UPTAKE 30 % (30-39); THYROXINE (T4) 10.1 UG/DL (4.5-12.0)
[2017-07-06] MEDS: traMADol 50 MG TAB PO ×2 (08:24→21:02)
[2017-07-06] MEDS: DULoxetine 30 MG CAP (CYMBALTA) PO ×2 (08:24→20:58)
[2017-07-06] MEDS: FAMOTIDINE 20 MG TAB PO ×2 (08:24→21:00)
[2017-07-06] MEDS: NICOTINE 21MG/24HR 1 EA TRANSDERMAL TD (08:25)
[2017-07-06] MEDS: PROPRANOLOL 10 MG TAB PO ×3 (08:25→21:00)
[2017-07-06] MEDS: clonazePAM 0.5 MG TAB PO (21:00)
[2017-07-06] MEDS: traZODone 50 MG TAB PO (21:00)
[2017-07-07] MEDS: DULoxetine 30 MG CAP (CYMBALTA) PO (08:33)
[2017-07-07] MEDS: FAMOTIDINE 20 MG TAB PO (08:33)
[2017-07-07] MEDS: PROPRANOLOL 10 MG TAB PO (08:34)
[2017-07-07] MEDS: traMADol 50 MG TAB PO (08:34)
[2017-07-07] MEDS: NICOTINE 21MG/24HR 1 EA TRANSDERMAL TD (08:34)
== END 2017-07-07 10:45 | disposition home or self-care (01) | DRG 896 ==
LOC: M ED 23:45 → M ED INP 07-04 02:44 → M PSY 07-04 03:46
DX: F19.959 Other psychoactive substance use, unspecified with psychoactive substance-induced psychotic disorder, unspecified (principal); G93.5 Compression of brain; F41.1 Generalized anxiety disorder; F12.20 Cannabis dependence, uncomplicated; K21.9 Gastro-esophageal reflux disease without esophagitis; R03.0 Elevated blood-pressure reading, without diagnosis of hypertension; F17.210 Nicotine dependence, cigarettes, uncomplicated; R94.6 Abnormal results of thyroid function studies; R94.31 Abnormal electrocardiogram [ECG] [EKG]; F39 Unspecified mood [affective] disorder; M54.2 Cervicalgia; Z79.899 Other long term (current) drug therapy; Z88.8 Allergy status to other drugs, medicaments and biological substances; Z91.041 Radiographic dye allergy status; Z90.710 Acquired absence of both cervix and uterus; Z90.49 Acquired absence of other specified parts of digestive tract

== ENCOUNTER → 2017-08-23 | Outpatient (CLI) | payer MEDICARE | LOC: M PAIN 14:00 | DX: Q07.00 Arnold-Chiari syndrome without spina bifida or hydrocephalus (principal); M50.20 Other cervical disc displacement, unspecified cervical region; M79.7 Fibromyalgia; F32.9 Major depressive disorder, single episode, unspecified; Z79.899 Other long term (current) drug therapy; Z88.8 Allergy status to other drugs, medicaments and biological substances; Z91.041 Radiographic dye allergy status; Z72.0 Tobacco use | CPT/HCPCS: G0463 ==

== ENCOUNTER → 2018-09-11 | Outpatient (CLI) | payer MEDICARE ==
[~2018-09-11] MED LIST changes: -/DULO30CA OR; -/ROPI5TA OR; +ARIP1TAB6 PO; +CYMB1CAP5 OR; +DULO1CAP3 PO; +MILK120011 PO; -MILKSUS PO; +PATIENT COMMENT; +PROP10TA55 PO; +RANI150T PO; +REQU1TAB15 OR; +TRAM50TA2 PO; +TRAZO50TA PO; +marijuana
--- NOTE | 2018-09-13 01:45 | ECWPNPC ---
PATIENT NAME: NICLOAS LLANES : 1965 GENDER: FEMALE VISIT DATE: 09/11/2018 DISCHARGE DATE: 09/11/18 1417 VISIT LOCKED DATE TIME: PHYSICIAN: GABRIEL ZULUAGA RESOURCE: GABRIEL ZULUAGA REASON FOR APPOINTMENT 1. PT OF SW NECK/BACK HISTORY OF PRESENT ILLNESS HISTORY OF PRESENT ILLNESS: PAIN THE PATIENT DESCRIBES THE PAIN... 52 YR OLD FEMALE HERE FOR F/U ON NECK, UPER AND LOWER BACK PAIN.PT SAYS HER BACK IS MORE PAINFUL FEELS HER RIGHT SIDE OF LOWER BACK FEELS NUMB.LAST MRI 2008.SHE SAYS SHE HET OCCASIONAL PAIN DOWN THE RIGHT LEG. SHE SAYS THE PAIN VAIRES FROM 6/10 BUT CAN GO UP TO AN 8/10.SHE FEELS HER PAIN HAS INCREASED RECENTLY.SHE IS DUE TO HAVE SURGERY FOR HIATAL HERNIA. PATIENT'S LAST MRI 2008. FALL RISK SCREENING: SCREENING :NO FALLS REPORTED IN THE LAST YEAR CURRENT MEDICATIONS TAKING IBUPROFEN 1 TAB ORAL 400 MG Q 6HRS NEEDED TAKING RANITIDINE HCL 150 MG CAPSULE 1 CAPSULE ORALLY BID TAKING TRAMADOL HCL 50 MG TABLET 1-2 TABS ORALLY EVERY 6 HRS PRN TAKING CYMBALTA 60 MG CAPSULE DELAYED RELEASE PARTICLES 1 CAPSULE ORALLY TWICE A DAY TAKING MAY USE - - DISCONTINUED ZANTAC 150 MAXIMUM STRENGTH 75 MG TABLET 1 TABLET ORALLY TWICE A DAY, NOTES: DUPLICATE DISCONTINUED CUSTOM DO NOT USE TRAMADOL 50 MG TABLET ONE TAB ORALLY EVERY 4-6 HOURS PRN PAIN, NOTES: DUPLICATE DISCONTINUED SOMA 350 MG TABLET 1 TABLET NEEDED ORALLY FOUR TIMES A DAY DISCONTINUED PAXIL 20 MG TABLET 1 TABLET IN THE MORNING ORALLY ONCE A DAY MEDICATION LIST REVIEWED AND RECONCILED WITH THE PATIENT PAST MEDICAL HISTORY FIBROMYALGIA ARTHRITIS DEPRESSION ACID REFLUX ARNOLD MALFORMATION SHINGLES IN 2016 DIVERTICULOSIS HIATAL HERNIS URINARY INCONTINENCE ALLERGIES WELLBUTRIN: MOOD-ANGRY - SIDE EFFECTS CT DYE: SNEEZING-BREATHING - ALLERGY SURGICAL HISTORY APPENDECTOMY 1986 TUBAL LIGATION HYSTERECTOMY CHOLECYSTECTOMY HERNIA REPAIR FAMILY HISTORY FATHER: , MORTEZA TAY CA, DIAGNOSED WITH OTHER MOTHER: , BRAIN ANEURYSM, OTHER DAUGHTER(S): 2 DAUGHTER ARNELIZABETH CHIARI 1 DAUGHTER-UNKNOWN AUTOIMMUNE DISEASE 4DAUGHTER(S) - HEALTHY. 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 LATEX QUESTIONNAIRE LATEX ALLERGY : HAVE YOU EVER DEVELOPED ANY TYPE OF REACTION AFTER HANDLING LATEX PRODUCTS SUCH RUBBER GLOVES, CONDOMS, DIAPHRAGMS, BALLOONS, SOCKS, OR UNDERWEAR?NO LATEX ALLERGY : HAVE YOU EVER DEVELOPED ANY TYPE OF REACTION DURING OR AFTER DENTAL APPOINTMENT, VAGINAL/RECTAL EXAMINATION, SURGICAL PROCEDURE, OR ANY OTHER EXPOSURE?NO LATEX RISK : HAVE YOU EVER HAD ANY DIFFICULTY BREATHING OR HIVES AFTER EATING OR HANDLING ANY FRUITS, OR VEGETABLES; SUCH KIWI, BANANAS, STONE FRUITS, OR CHESTNUTSNO LATEX RISK : DO YOU HAVE A PREVIOUS PERSONAL HISTORY OF MORE THAN NINE SURGERIES, SPINA BIFIDA, OR REPEATED CATHERTIZATIONS? NO LATEX RISK : ARE YOU FREQUENTLY EXPOSED TO LATEX PRODUCTS IN YOUR OCCUPATION?NO DATE ASKED : 09/11/2018 ALCOHOL SCREENING POINTS: 0, INTERPRETATION: NEGATIVE. RECREATIONAL DRUG USE DENIES. SEXUAL HX HAD SEX IN THE LAST 12 MONTHS (VAGINAL, ORAL, OR ANAL)?: YES, WITH: MEN ONLY, USE PROTECTION?: NO, HAVE YOU EVER HAD AN STD?: NO. [facility] [id number] NONE LANGUAGE LANGUAGES SPOKEN:LUXEMBOURGISH LEARNING BARRIERS / SPECIAL NEEDS BARRIERS TO LEARNING?NO HEARING IMPAIRED?NO VISION IMPAIRED?YES :CORRECTIVE LENSES FOR DISTANCE COGNITIVELY IMPAIRED?NO READINESS TO LEARN?YES LEARNING PREFERENCES?NO LEARNING CAPABILITIES PRESENT?YES EMOTIONAL BARRIERS?NO SPECIAL DEVICES?NO SKEIN MERCERIZING MACHINE OPERATOR NEEDED?NO DOMESTIC VIOLENCE DO YOU FEEL SAFE IN YOUR ENVIRONMENT?YES OCCUPATION: UNEMPLOYED. MARITAL STATUS: . PAIN CLINIC PFS, CLERGY, PUBLIC HEALTH REFERRALS HAS THE PATIENT BEEN EDUCATED REGARDING HIS/HER PLAN OF CARE?YES HAS THE PATIENT BEEN EDUCATED REGARDING PAIN, THE RISK FOR PAIN, THE IMPORTANCE OF EFFECTIVE PAIN MANAGEMENT, AND THE PAIN ASSESSMENT PROCESS?YES ADVANCE DIRECTIVE ADVANCE DIRECTIVE DISCUSSED WITH PATIENT:YES 09/11/18 PT DOES NOT HAVE ANY ADVANCED DIRECTIVES AND SHE DECLINED INFORMATION ON HCP AT THIS TIME. AD 08/23/17 1430 REVIEWED LAS. HOSPITALIZATION/MAJOR DIAGNOSTIC PROCEDURE SURGICAL RELATED REVIEW OF SYSTEMS REVIEWED BY: PROVIDER: FLAKITA Barnard CONSTITUTIONAL: ANY CHANGE IN YOUR MEDICAL CONDITION? NO . CHILLS NO . FEVER NO . INFECTION: DO YOU HAVE NEW INFECTIONS? NO . DO YOU HAVE HISTORY OF MRSA? NO . MUSCULOSKELETAL: ANY NEW PATTERNS OF PAIN OR NUMBNESS? NO . GASTROENTEROLOGY: ANY NEW CHANGE IN BOWEL CONTROL? NO . GENITOURINARY: ANY NEW CHANGE IN BLADDER CONTROL? YES, URINARY INCONTINENCE X 6 MONTHS, SHE'S NOT SURE IF IT IS RELATED TO HER HERNIAS . IS THERE A CHANCE YOU COULD BE ? NO . HEMATOLOGY/LYMPH: DO YOU TAKE ANY BLOOD THINNERS? (FOR EXAMPLE- COUMADIN, PLAVIX, AGGRENOX, PLATEL, PRADAXA, OR XARELTO) NO . WHEN WAS YOUR LAST DOSE? DATE: TIME: . NEUROLOGY: HAVE YOU FALLEN IN THE PAST 12 MONTHS? NO . ANY NEW EXTREMITY NUMBNESS OR WEAKNESS? NO . CARDIOLOGY: DO YOU HAVE A PACEMAKER OR DEFIBRILLATOR? NO . RESPIRATORY: HAVE YOU BEEN SICK IN THE PAST WEEK? NO . FEVER NO . FLU LIKE SYMPTOMS? NO . COUGH NO . INTEGUMENTARY: DO YOU HAVE ANY RASHES OR OPEN SORES? NO . ALLERGIC/IMMUNO: ARE YOU ALLERGIC TO IV DYE? YES . ANY NEW ALLERGIES? NO . PSYCHIATRIC: DO YOU HAVE THOUGHTS OF HURTING YOURSELF OR SOMEONE ELSE? NO . ARE YOU ABUSED, NEGLECTED, OR IN AN UNSAFE ENVIRONMENT? NO . ENDOCRINOLOGY: ARE YOU DIABETIC? NO . OTHER: DO YOU NEED ANY PRESCRIPTIONS? YES . IF YES, PLEASE LIST: CYMBALTA AND TRAMADOL . ANY NEW PROBLEMS WITH YOUR MEDICATIONS? NO . WHEN DID YOU LAST EAT? ____ . WHEN DID YOU LAST DRINK? ____ . WHAT DID YOU LAST DRINK? ____ . NAME OF PERSON DRIVING YOU HOME? ____ . DO YOU HAVE ANY OTHER QUESTIONS OR CONCERNS NO . VITAL SIGNS WT 203.8 LBS, HT 64.5", BMI 34.44 INDEX, BP 166/85 MM HG, HR 85 /MIN, RR 18 /MIN, TEMP 97.8 F, OXYGEN SAT % 96%, NA INITIALS SC 13:27. EXAMINATION GENERAL EXAMINATION: GENERAL APPEARANCE:NO ACUTE DISTRESS, WELL NOURISHED AND HYDRATED. PSYCHAPPROPRIATE MOOD AND AFFECT . NECK: FROM TENDER ALONG POSTERIOR NECK AND TRAPEZIUS. LUNGS:CLEAR TO AUSCULTATION BILATERALLY, NO WHEEZES, RHONCHI, RALES. HEART:NO MURMURS, REGULAR RATE AND RHYTHM. BACK: FROM TENDER ALONG RIGHT SIDED LUMBAR PARASPINAL MUSCLES SLR NEG BILATERAL. ASSESSMENTS CERVICALGIA - M54.2 (PRIMARY) FIBROMYALGIA - M79.7 LUMBAGO WITH SCIATICA, RIGHT SIDE - M54.41 OTHER CHRONIC PAIN - G89.29 TREATMENT CERVICALGIA CONTINUE TRAMADOL HCL TABLET, 50 MG, 1-2 TABS, ORALLY, EVERY 6 HRS PRN, 30 DAYS, 120, REFILLS 0 CONTINUE CYMBALTA CAPSULE DELAYED RELEASE PARTICLES, 60 MG, 1 CAPSULE, ORALLY, TWICE A DAY, 30 DAYS, 60 CAPSULE LUMBAGO WITH SCIATICA, RIGHT SIDE MRI: LUMBAR W/O [id number] OTHERS CLINICAL NOTES: ISTOP REGISTRY REVIEWED AND DEMONSTRATES COMPLLIANCE. (REF # [id number] ) BRINGS IN MEDICATIONS WHICH IS APPROPRIATE FOR WHAT WAS DISPENSED.URINE TOX TODAY, [facility] NARCOTIC AGREEMENT WAS REVIEWED AND SIGNED TODAY BY THE PATIENT. SEE ATTACHED DOCUMENT FOR FULL DETAILS; SPECIFIC ISSUES WERE REVIEWED: 1) KEEP PAIN MEDS IN THEIR ORIGINAL BOTTLES AND ANY WEEKLY PLANNERS ARE TO BE BROUGHT TO THE PAIN CENTER AT EVERY VISIT. 2) THE PATIENT IS NOT TO INCREASE DOSING OR TIMING OF THEIR PAIN MEDICATION WITHOUT SPECIFIC DIRECTION OF THEIR PAIN CENTERPROVIDER (NOT ER OR OTHER PROVIDERS). 3) ALL PAIN MEDS ARE TO BE KEPT SECURED, IN A LOCKED BOX. 4) NO PAIN MEDS ARE TO BE SHARED WITH ANY OTHER PERSON FOR ANY REASON. 5) NO PAIN MEDS MAY BE TAKEN FROM ANY FRIENDS OR RELATIVES FOR ANY REASON 6) NO MEDS OR SUBSTANCES WHICH ARE NOT LEGAL ARE TO BE USED- NO MARIJUANA, NO COCAINE, AMPHETAMINES, HEROIN, OR OTHERS ARE EVER TO BE USED. 7)URINE TESTING IS DONE TO ACCOUNT FOR MEDS AND SUBSTANCES BEING TAKEN AND WILL BE DONE RANDOMLY. PROCEDURE CODES FA211 ESTABILISHED PATIENT [facility] FACILITY CHARGE DISPOSITION & COMMUNICATION FOLLOW UP 4 WEEKS ELECTRONICALLY SIGNED BY CHRISTIN DELGADILLO ON 09/12/2018 AT 04:47 PM EDT DISCLAIMER : THIS IS A VISIT SUMMARY EXTRACTED FROM THE [employer] CHART. IT IS NOT A COPY OF THE [employer] PROGRESS NOTE. ELLE
== END ==
LOC: M PAIN 13:00
PROVIDERS: ATTEND Nurse Practitioner Family
DX: G89.29 Other chronic pain (principal); M54.2 Cervicalgia; M79.7 Fibromyalgia; M54.41 Lumbago with sciatica, right side; F32.9 Major depressive disorder, single episode, unspecified; K21.9 Gastro-esophageal reflux disease without esophagitis; K44.9 Diaphragmatic hernia without obstruction or gangrene; R32 Unspecified urinary incontinence; F17.210 Nicotine dependence, cigarettes, uncomplicated; Z79.899 Other long term (current) drug therapy; Z88.8 Allergy status to other drugs, medicaments and biological substances; Z91.041 Radiographic dye allergy status

== ENCOUNTER → 2018-10-15 | Outpatient (REF) | payer MEDICARE | LOC: M LAB LCGH 15:31 | PROVIDERS: ATTEND Surgery | DX: K43.9 Ventral hernia without obstruction or gangrene (principal) ==

== ENCOUNTER → 2018-11-29 | Outpatient (CLI) | payer MEDICARE ==
[~2018-11-29] MED LIST changes: +TRAZ1TAB10 PO; -TRAZO50TA PO
--- NOTE | 2018-12-03 01:25 | ECWPNPC ---
PATIENT NAME: NICOLAS LLANES : 1965 GENDER: FEMALE VISIT DATE: 11/29/2018 DISCHARGE DATE: 11/29/18 0000 VISIT LOCKED DATE TIME: PHYSICIAN: CASIE ATKINSON RESOURCE: CASIE ATKINSON REASON FOR APPOINTMENT 1. SW/NECK BACK HISTORY OF PRESENT ILLNESS HISTORY OF PRESENT ILLNESS: 53 YEAR OLD FEMALE IN FOR FOLLOW UP CHRONIC PAIN VISIT. SHE ADMITS TO RECENT ABDOMINAL SURGERY FOR HERNIA REPAIR. SHE HAS BEEN TAKING MEDICAL MARIJUANA AND TRAMADOL FOR HER PAIN AND SHE STATES IT IS WORKING WELL TO HELP CONTROL HER PAIN LONG SHE DOES NOT MISS A DOSE. SHE CURRENTLY RATES HER PAIN AT A 4/10. PAIN THE PATIENT DESCRIBES THE PAIN... FALL RISK SCREENING: SCREENING :NO FALLS REPORTED IN THE LAST YEAR CURRENT MEDICATIONS TAKING IBUPROFEN 1 TAB ORAL 400 MG Q 6HRS NEEDED TAKING RANITIDINE HCL 150 MG CAPSULE 1 CAPSULE ORALLY BID TAKING MAY USE - - MEDICAL MARIJUANNA PRN TAKING CYMBALTA 60 MG CAPSULE DELAYED RELEASE PARTICLES 1 CAPSULE ORALLY TWICE A DAY TAKING TRAMADOL HCL 50 MG TABLET 1-2 TABS ORALLY EVERY 6 HRS PRN MEDICATION LIST REVIEWED AND RECONCILED WITH THE PATIENT PAST MEDICAL HISTORY FIBROMYALGIA ARTHRITIS DEPRESSION ACID REFLUX ARNOLD MALFORMATION SHINGLES IN 2016 DIVERTICULOSIS HIATAL HERNIS URINARY INCONTINENCE ALLERGIES WELLBUTRIN: MOOD-ANGRY - SIDE EFFECTS CT DYE: SNEEZING-BREATHING - ALLERGY SURGICAL HISTORY APPENDECTOMY 1986 TUBAL LIGATION HYSTERECTOMY CHOLECYSTECTOMY HERNIA REPAIR 10/2018 HERNIA REPAIR INFECTION CORRECTED WITH SURGERY 11/24/18 FAMILY HISTORY FATHER: , MORTEZA TAY CA, DIAGNOSED WITH OTHER MOTHER: , BRAIN ANEURYSM, OTHER DAUGHTER(S): 2 DAUGHTER ARNELIZABETH CHIARI 1 DAUGHTER-UNKNOWN AUTOIMMUNE DISEASE 4DAUGHTER(S) - HEALTHY. SOCIAL HISTORY GENERAL: TOBACCO USE ARE YOU A:CURRENT SMOKER ARE YOU INTERESTED IN QUITTING?NOT READY TO QUIT COUNSELED THE PATIENT ON SMOKING EFFECTS, EDUCATION [id number]/27/2019 HOW MANY CIGARETTES A DAY DO YOU SMOKE?11-20 PATIENT COUNSELED ON THE DANGERS OF TOBACCO USE AND URGED TO QUIT:09/11/2018 SMOKING CESSATION INFORMATION GIVEN11/23/2017 EXPRESSES INTEREST IN THE PATCH TO QUIT SMOKING/ PLANS TO DISCUSS WITH HER PIPELINER LANGUAGE LANGUAGES SPOKEN:MALTESE DOMESTIC VIOLENCE DO YOU FEEL SAFE IN YOUR ENVIRONMENT?YES RECREATIONAL DRUG USE DENIES. LEARNING BARRIERS / SPECIAL NEEDS BARRIERS TO LEARNING?NO HEARING IMPAIRED?NO VISION IMPAIRED?YES :CORRECTIVE LENSES FOR DISTANCE COGNITIVELY IMPAIRED?NO READINESS TO LEARN?YES LEARNING PREFERENCES?NO LEARNING CAPABILITIES PRESENT?YES EMOTIONAL BARRIERS?NO SPECIAL DEVICES?NO SOUND TRUCK OPERATOR NEEDED?NO PAIN CLINIC PFS, CLERGY, PUBLIC HEALTH REFERRALS HAS THE PATIENT BEEN EDUCATED REGARDING HIS/HER PLAN OF CARE?YES HAS THE PATIENT BEEN EDUCATED REGARDING PAIN, THE RISK FOR PAIN, THE IMPORTANCE OF EFFECTIVE PAIN MANAGEMENT, AND THE PAIN ASSESSMENT PROCESS?YES LATEX QUESTIONNAIRE LATEX ALLERGY : HAVE YOU EVER DEVELOPED ANY TYPE OF REACTION AFTER HANDLING LATEX PRODUCTS SUCH RUBBER GLOVES, CONDOMS, DIAPHRAGMS, BALLOONS, SOCKS, OR UNDERWEAR?NO LATEX ALLERGY : HAVE YOU EVER DEVELOPED ANY TYPE OF REACTION DURING OR AFTER DENTAL APPOINTMENT, VAGINAL/RECTAL EXAMINATION, SURGICAL PROCEDURE, OR ANY OTHER EXPOSURE?NO LATEX RISK : HAVE YOU EVER HAD ANY DIFFICULTY BREATHING OR HIVES AFTER EATING OR HANDLING ANY FRUITS, OR VEGETABLES; SUCH KIWI, BANANAS, STONE FRUITS, OR CHESTNUTSNO LATEX RISK : DO YOU HAVE A PREVIOUS PERSONAL HISTORY OF MORE THAN NINE SURGERIES, SPINA BIFIDA, OR REPEATED CATHERTIZATIONS? NO LATEX RISK : ARE YOU FREQUENTLY EXPOSED TO LATEX PRODUCTS IN YOUR OCCUPATION?NO DATE ASKED : 09/11/2018 ADVANCE DIRECTIVE ADVANCE DIRECTIVE DISCUSSED WITH PATIENT:YES PT DOES NOT HAVE ANY ADVANCED DIRECTIVES AND SHE DECLINED INFORMATION ON HCP AT THIS TIME. ORTHODOXY [id number] NONE MARITAL STATUS: . ALCOHOL SCREENING POINTS: 0, INTERPRETATION: NEGATIVE. OCCUPATION: UNEMPLOYED. SEXUAL HX HAD SEX IN THE LAST 12 MONTHS (VAGINAL, ORAL, OR ANAL)?: YES, WITH: MEN ONLY, USE PROTECTION?: NO, HAVE YOU EVER HAD AN STD?: NO. 08/23/17 1430 REVIEWED LAS. HOSPITALIZATION/MAJOR DIAGNOSTIC PROCEDURE SURGICAL RELATED REVIEW OF SYSTEMS REVIEWED BY: PROVIDER: FORREST ATKINSON STONEWORK SUPERVISOR-C . CONSTITUTIONAL: ANY CHANGE IN YOUR MEDICAL CONDITION? NO . CHILLS NO . FEVER NO . INFECTION: DO YOU HAVE NEW INFECTIONS? YES, S/P HERNIA REPAIR BECAME INFECTED, HAD TO GO BACK INTO SURGERY TO CORRECT. SITE IS OPEN WITH A DSG ON . DO YOU HAVE HISTORY OF MRSA? NO . MUSCULOSKELETAL: ANY NEW PATTERNS OF PAIN OR NUMBNESS? NO . GASTROENTEROLOGY: ANY NEW CHANGE IN BOWEL CONTROL? NO . GENITOURINARY: ANY NEW CHANGE IN BLADDER CONTROL? NO . IS THERE A CHANCE YOU COULD BE ? NO . HEMATOLOGY/LYMPH: DO YOU TAKE ANY BLOOD THINNERS? (FOR EXAMPLE- COUMADIN, PLAVIX, AGGRENOX, PLATEL, PRADAXA, OR XARELTO) NO . WHEN WAS YOUR LAST DOSE? DATE: TIME: . NEUROLOGY: HAVE YOU FALLEN IN THE PAST 12 MONTHS? NO . ANY NEW EXTREMITY NUMBNESS OR WEAKNESS? NO . CARDIOLOGY: DO YOU HAVE A PACEMAKER OR DEFIBRILLATOR? NO . RESPIRATORY: HAVE YOU BEEN SICK IN THE PAST WEEK? NO . FEVER NO . FLU LIKE SYMPTOMS? NO . COUGH NO . INTEGUMENTARY: DO YOU HAVE ANY RASHES OR OPEN SORES? YES, HERNIA REPAIR SITE IS OPEN COVERED WITH A DSG . ALLERGIC/IMMUNO: ARE YOU ALLERGIC TO IV DYE? YES . ANY NEW ALLERGIES? NO . PSYCHIATRIC: DO YOU HAVE THOUGHTS OF HURTING YOURSELF OR SOMEONE ELSE? NO . ARE YOU ABUSED, NEGLECTED, OR IN AN UNSAFE ENVIRONMENT? NO . ENDOCRINOLOGY: ARE YOU DIABETIC? NO . OTHER: DO YOU NEED ANY PRESCRIPTIONS? NO . IF YES, PLEASE LIST: ____ . ANY NEW PROBLEMS WITH YOUR MEDICATIONS? NO . WHEN DID YOU LAST EAT? ____ . WHEN DID YOU LAST DRINK? ____ . WHAT DID YOU LAST DRINK? ____ . NAME OF PERSON DRIVING YOU HOME? ____ . DO YOU HAVE ANY OTHER QUESTIONS OR CONCERNS NO . VITAL SIGNS WT 201.4 LBS, HT 64.5", BMI 34.03 INDEX, BP 148/90 MM HG, HR 91 /MIN, RR 18 /MIN, TEMP 97.4 F, OXYGEN SAT % 96%, NA INITIALS AW 1343, REVIEWED BY: EM. EXAMINATION GENERAL EXAMINATION: GENERAL APPEARANCE:NO ACUTE DISTRESS, WELL NOURISHED AND HYDRATED. LUNGS:CLEAR TO AUSCULTATION BILATERALLY, NO WHEEZES, RHONCHI, RALES. HEART:NO MURMURS, REGULAR RATE AND RHYTHM. 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 THIS EDITING COMPUTER PUBLISHER SPOKE WITH PATIENT REGARDING CONCURRENT USE OF MARIJUANA AND TRAMADOL AND INFORMED HER WE WOULD HAVE TO DISCUSS ALTERNATE PAIN OPTIONS IT IS THE POLICY OF THE CLINIC THAT CONCURRENT USE IS NOT ALLOWED. PATIENT BECAME EXTREMELY AGITATED AT THE MENTION OF THIS AND STARTED TO YELL AT THIS EDITING COMPUTER PUBLISHER. PATIENT'S VOICE PROJECTED SO MUCH THAT THE RN CAME IN TO CHECK ON THE STATUS OF THE VISIT. PATIENT WAS REASSURED THAT WE DID NOT WANT TO ABRUPTLY STOP EITHER AND THAT WE JUST NEEDED TO START THE CONVERSATION. SHE INSISTED THAT THE CLINIC ENCOURAGED HER TO GET ON MEDICAL MARIJUANA AND NOW THAT IT HELPS WE WANT TO TAKE IT AWAY FROM HER. AT THE END OF THE VISIT THIS EDITING COMPUTER PUBLISHER RECOMMENDED A FOLLOW UP IN 2 MONTHS FOR FURTHER EVALUATION. , ISTOP REGISTRY REVIEWED AND DEMONSTRATES COMPLLIANCE. (REF __# [id number] ) BRINGS IN MEDICATIONS WHICH IS APPROPRIATE FOR WHAT WAS DISPENSED. RECENT URINE TOXICOLOGY REVIEWED. NO UNAUTHORIZED MEDICATIONS. NO ILLICIT SUBSTANCES AND PRESCRIBED MEDICATIONS WERE PRESENT. PROCEDURE CODES FA211 ESTABILISHED PATIENT [facility] CHARGE DISPOSITION & COMMUNICATION ELECTRONICALLY SIGNED BY CHRISTIN RAEL ON 11/29/2018 AT 04:05 PM EDT DISCLAIMER : THIS IS A VISIT SUMMARY EXTRACTED FROM THE [employer] CHART. IT IS NOT A COPY OF THE [employer] PROGRESS NOTE. ELLE
== END ==
LOC: M PAIN 13:30
PROVIDERS: ATTEND Family Medicine
DX: Q07.00 Arnold-Chiari syndrome without spina bifida or hydrocephalus (principal); M54.2 Cervicalgia; M54.41 Lumbago with sciatica, right side; M79.7 Fibromyalgia; M19.90 Unspecified osteoarthritis, unspecified site; F32.9 Major depressive disorder, single episode, unspecified; K21.9 Gastro-esophageal reflux disease without esophagitis; K44.9 Diaphragmatic hernia without obstruction or gangrene; Z90.49 Acquired absence of other specified parts of digestive tract; Z90.710 Acquired absence of both cervix and uterus; F17.210 Nicotine dependence, cigarettes, uncomplicated; Z88.8 Allergy status to other drugs, medicaments and biological substances; Z91.041 Radiographic dye allergy status; Z79.891 Long term (current) use of opiate analgesic; Z79.899 Other long term (current) drug therapy